=== PATIENT | male | born 1990 | race Caucasian/White ===

== ENCOUNTER 2017-02-16 07:17 | Emergency (ER) | payer OTHER ==
[2017-02-16 07:26] VITALS: BP 123/86
--- NOTE | 2017-02-16 07:49 | ED Physician Documentation ---
History of Present Illness - Stated complaint Stated Complaint: SHOULDER PX - Chief complaint Chief Complaint: Ext Problem - Additonal information Additional information: 26-year-old male presents to the emergency department with ongoing right shoulder pain.He reports that he has had x-rays done twice. He is frustrated that he has not received more treatment or testing for his arm the his primary physician through the and Was hoping that the emergency department could help him get further imaging treatment such as MRI. He has full range of motion of his right shoulder, his pain is mostly anterior and superior at the shoulder joint. He reports that he will have intermittent clicking with range of motion.He reports that recently he was doing 25 push-ups and at the final push-up his right shoulder simply gave out. Review of Systems Neurologic: denies: Focal weakness, Numbness PD PAST MEDICAL HISTORY - Present Medications Home Medications: Ambulatory Orders Medication Instructions Recorded Confirmed Meloxicam 15 mg PO DAILY 02/16/17 02/16/17 - Allergies Allergies/Adverse Reactions: Allergies Allergy/AdvReac Type Severity Reaction Status Date / Time No Known Drug Allergies Allergy Verified 02/16/17 07:24 PD ED PE NORMAL - General General: Alert and oriented X 3 - HEENT HEENT: Atraumatic - Neck Neck: Supple, no meningeal sign - Cardiac Cardiac: Strong equal pulses - Respiratory Respiratory: No respiratory distress PD ED PE EXPANDED - Extremities Extremities: Right shoulder (Full range of motion Of shoulder. Mild tenderness to superior and anterior shoulder joint. No appreciable weakness on shoulder abduction, external rotation, internal rotation extension or flexion.No deformities.) Results - Vitals Vitals: Vital Signs - 24 hr 02/16/17 07:25 Heart Rate 81 Respiratory 14 Rate Blood Pressure 123/86 H O2 Saturation 98 Oxygen O2 Source Room air PD MEDICAL DECISION MAKING - ED course ED course: 26-year-old male presents to the emergency department for second opinion on chronic shoulder pain.His rotator cuff seems grossly intact, but I did discuss with him possibility of small chronic rotator cuff injury, tendinitis, osteoarthritis, Bursitis. I did recommend to him that he follow-up with sports medicine or orthopedics and continue to attempt to obtain further imaging of the shoulder.Did not perform plain film x-rays today given no suspicion for bony injury and previously performed x 2. Departure - Departure Disposition: 01 Home, Self Care Clinical Impression: Shoulder pain, right Condition: Good Instructions: Instability Shoulder, Rotator Cuff Injury, Anatomy Shoulder, Shoulder Probs Comments: You should see a sports medicine physician or a orthopedist regarding your shoulder pain. You should have an MRI to further evaluate your shoulder. Return to the emergency department if he develops severe pain, weakness or numbness.
== END 2017-02-16 07:59 | disposition home or self-care (01) ==
LOC: ED 07:17
DX: M25.511 Pain in right shoulder (principal)
CPT/HCPCS: 99282; 99283

== ENCOUNTER 2017-06-16 14:41 | Outpatient (CLI) | payer OTHER | END 2017-06-16 14:42 | disposition home or self-care (01) | LOC: SC 14:41 | PROVIDERS: ATTEND Internal Medicine Pulmonary Disease | DX: G47.10 Hypersomnia, unspecified (principal) | CPT/HCPCS: 99203; 99212 ==

== ENCOUNTER 2017-08-11 18:49 | Outpatient (CLI) | payer OTHER | END 2017-08-11 18:50 | disposition home or self-care (01) | LOC: SC 18:49 | PROVIDERS: ATTEND Internal Medicine Pulmonary Disease | DX: G47.61 Periodic limb movement disorder (principal) | CPT/HCPCS: 95810 ==

== ENCOUNTER 2017-08-12 06:28 | Outpatient (CLI) | payer OTHER | END 2017-08-12 06:29 | disposition home or self-care (01) | LOC: SC 06:28 | PROVIDERS: ATTEND Internal Medicine Pulmonary Disease | DX: G47.10 Hypersomnia, unspecified (principal) | CPT/HCPCS: 95805 ==

== ENCOUNTER 2017-08-12 07:00 | Outpatient (CLI) | payer OTHER ==
[2017-08-12 08:23] LABS: MUDS CUTOFF CONCENTRATIONS CUTOFF CONC BELOW:
[2017-08-12 13:08] LABS: AMPHETAMINE SCREEN,URINE NEGATIVE (NEGATIVE); BENZODIAZEPINES SCREEN, URINE NEGATIVE (NEGATIVE); COCAINE SCREEN URINE NEGATIVE (NEGATIVE); METHADONE SCREEN, URINE NEGATIVE (NEGATIVE); METHAMPHETAMINES SCREEN, URINE NEGATIVE (NEGATIVE); OPIATE SCREEN, URINE NEGATIVE (NEGATIVE); OXYCODONE SCREEN, URINE NEGATIVE (NEGATIVE); PROPOXYPHENE SCREEN, URINE NEGATIVE (NEGATIVE); TRICYCLIC ANTIDEPRESSANT,URINE NEGATIVE (NEGATIVE)
== END 2017-08-12 07:01 ==
LOC: LAB.R 07:00
PROVIDERS: ATTEND Internal Medicine Pulmonary Disease
DX: G47.10 Hypersomnia, unspecified (principal)
CPT/HCPCS: 80306

== ENCOUNTER 2017-09-07 09:43 | Outpatient (CLI) | payer OTHER | END 2017-09-07 09:44 | disposition home or self-care (01) | LOC: SC 09:43 | PROVIDERS: ATTEND Internal Medicine Pulmonary Disease | DX: G47.10 Hypersomnia, unspecified (principal) | CPT/HCPCS: 99212; 99213 ==